=== PATIENT | male | born 1975 | race Caucasian/White ===

== ENCOUNTER 2022-08-23 09:40 | Emergency (ER) | payer OTHER ==
[~2022-08-23] VITALS: Ht 172.7 cm; Wt 77.1 kg
[2022-08-23 10:10] VITALS: BP 123/88
== END 2022-08-23 11:00 | disposition home or self-care (01) ==
LOC: ER 09:40
DX: S01.111D Laceration without foreign body of right eyelid and periocular area, subsequent encounter (principal)

== ENCOUNTER 2024-05-21 07:18 | Emergency (ER) | payer OTHER ==
[~2024-05-21] VITALS: Ht 177.8 cm; Wt 72.6 kg
[2024-05-21 09:07] LABS: BASOPHILS ABSOLUTE AUTO 0.05 K/mm3 (0.00-0.23); BASOPHILS PERCENT AUTO 1 % (0-2); EOSINOPHILS ABSOLUTE AUTO 0.05 K/mm3 (0.00-0.68); EOSINOPHILS PERCENT AUTO 1 % (0-6); Hematocrit 40.1 % (37.0-53.0); Hemoglobin 14.7 g/dL (13.5-17.5); IMMATURE GRAN ABSOLUTE AUTO 0.02 K/mm3 (0.00-0.10); IMMATURE GRAN PERCENT AUTO 0 % (0-1); LYMPHOCYTES ABSOLUTE AUTO 1.02 K/mm3 (0.84-5.20); LYMPHOCYTES PERCENT AUTO 11 % (21-46); MONOCYTES ABSOLUTE AUTO 1.34 K/mm3 (0.16-1.47); MONOCYTES PERCENT AUTO 14 % (4-13); Mean Corpuscular HGB 36.5 pg (26.0-34.0); Mean Corpuscular HGB Conc 36.7 g/dL (31.5-36.5); Mean Corpuscular Volume 100 fL (80-100); Mean Platelet Volume 9.9 fL (9.1-12.4); NEUTROPHILS ABSOLUTE AUTO 6.97 K/mm3 (1.96-9.15); NEUTROPHILS PERCENT AUTO 74 % (41-73); Platelet Count 268 K/mm3 (150-400); RDW Coefficient Variation 13.3 % (11.7-14.2); RDW Standard Deviation 49.3 fL (35.1-46.3); Red Blood Cell Count 4.03 M/mm3 (4.30-5.90); White Blood Cell Count 9.45 K/mm3 (4.00-11.30)
[2024-05-21 09:36] LABS: Albumin, Blood 3.8 g/dL (3.4-5.0); Albumin/Globulin Ratio 0.8 (0.8-1.8); Bilirubin, Total 0.4 mg/dL (0.1-1.0); Bun/Creatinine Ratio 5.6 (12.0-20.0); Creatinine, Blood 0.54 mg/dL (0.60-1.20); Globulin, Blood 4.7 g/dL (2.2-4.0); Potassium, Blood 4.1 mmol/L (3.5-5.5); Total Protein, Blood 8.5 g/dL (6.4-8.2)
[2024-05-21] MEDS ORDERED: Ketorolac Tromethamine 30mg Vial IV ONE (11:35)
[2024-05-21] MEDS ORDERED: NS 1,000 ML IV SCH (11:35)
[2024-05-21 12:27] LABS: Phosphorus, Blood 2.6 mg/dL (2.5-4.9)
[2024-05-21 12:52] VITALS: BP 167/85
[2024-05-21] MEDS ORDERED: Folic Acid 1 MG TAB PO ONE (12:55)
== END 2024-05-21 15:13 | disposition home or self-care (01) ==
LOC: ER 07:18
PROVIDERS: Student in an Organized Health Care Education/Training Program
DX: R20.2 Paresthesia of skin (principal); E86.0 Dehydration; E53.8 Deficiency of other specified B group vitamins; R25.1 Tremor, unspecified; Z88.2 Allergy status to sulfonamides
CPT/HCPCS: 70450; 80053; 82550; 82607; 82746; 83735; 84100; 85025; 85651; 86140; 93005; 93010; 93246; 96361; 96374; 99284-25; A9270; J1885; J7030

== ENCOUNTER 2024-08-29 07:54 | Emergency (ER) | payer OTHER ==
[~2024-08-29] VITALS: Ht 175.3 cm; Wt 77.1 kg
[2024-08-29] MEDS ORDERED: NS 1,000 ML IV SCH ×2 (08:20→13:20)
[2024-08-29] MEDS ORDERED: GABA100 PO (08:20)
[2024-08-29] MEDS ORDERED: Ondansetron HCl 2 MG / ML 2ML Vial IV PRN (08:20)
[2024-08-29] MEDS ORDERED: Morphine Sulfate 4 MG/1 ML Injection IV PRN (08:20)
[2024-08-29 08:27] LABS: BASOPHILS ABSOLUTE AUTO 0.06 K/mm3 (0.00-0.23); BASOPHILS PERCENT AUTO 1 % (0-2); EOSINOPHILS ABSOLUTE AUTO 0.03 K/mm3 (0.00-0.68); EOSINOPHILS PERCENT AUTO 0 % (0-6); Hematocrit 45.1 % (37.0-53.0); Hemoglobin 15.9 g/dL (13.5-17.5); IMMATURE GRAN ABSOLUTE AUTO 0.03 K/mm3 (0.00-0.10); IMMATURE GRAN PERCENT AUTO 0 % (0-1); LYMPHOCYTES ABSOLUTE AUTO 1.45 K/mm3 (0.84-5.20); LYMPHOCYTES PERCENT AUTO 13 % (21-46); MONOCYTES ABSOLUTE AUTO 1.48 K/mm3 (0.16-1.47); MONOCYTES PERCENT AUTO 13 % (4-13); Mean Corpuscular HGB 34.7 pg (26.0-34.0); Mean Corpuscular HGB Conc 35.3 g/dL (31.5-36.5); Mean Corpuscular Volume 99 fL (80-100); Mean Platelet Volume 9.8 fL (9.1-12.4); NEUTROPHILS PERCENT AUTO 72 % (41-73); Platelet Count 317 K/mm3 (150-400); RDW Standard Deviation 43.8 fL (35.1-46.3); Red Blood Cell Count 4.58 M/mm3 (4.30-5.90); White Blood Cell Count 11.05 K/mm3 (4.00-11.30)
[2024-08-29 09:04] LABS: Magnesium, Blood 1.9 mg/dL (1.6-2.4)
[2024-08-29 09:23] LABS: Albumin, Blood 3.5 g/dL (3.4-5.0); Albumin/Globulin Ratio 0.8 (0.8-1.8); Bilirubin, Total 0.2 mg/dL (0.1-1.0); Calcium, Blood 8.3 mg/dL (8.5-10.1); Creatinine, Blood 0.56 mg/dL (0.60-1.20); Globulin, Blood 4.3 g/dL (2.2-4.0); Phosphorus, Blood 3.3 mg/dL (2.5-4.9); Potassium, Blood 3.7 mmol/L (3.5-5.5); Total Protein, Blood 7.8 g/dL (6.4-8.2)
[2024-08-29] MEDS ORDERED: FOLI1 PO (09:30)
[2024-08-29] MEDS ORDERED: Acetaminophen 500 MG Tab PO ONE (12:45)
[2024-08-29] MEDS ORDERED: NS 1,000 ML BAG IR ONE (13:15)
[2024-08-29] MEDS ORDERED: NS 1,000 ML IV ONE (13:30)
[2024-08-29 14:00] VITALS: BP 117/75
== END 2024-08-29 15:02 | disposition home or self-care (01) ==
LOC: ER 07:54
PROVIDERS: Student in an Organized Health Care Education/Training Program
DX: S82.231A Displaced oblique fracture of shaft of right tibia, initial encounter for closed fracture (principal); S82.451A Displaced comminuted fracture of shaft of right fibula, initial encounter for closed fracture; F10.929 Alcohol use, unspecified with intoxication, unspecified; Y90.8 Blood alcohol level of 240 mg/100 ml or more; K74.60 Unspecified cirrhosis of liver; F17.210 Nicotine dependence, cigarettes, uncomplicated; W18.30XA Fall on same level, unspecified, initial encounter
CPT/HCPCS: 27825; 73560-RT; 73590; 73600; 80053; 80320; 82550; 83605; 83735; 84100; 85025; 96361-59; 96374-59; 96375-59; 99284-25; J2270; J2405; J7030

== ENCOUNTER 2024-09-02 07:34 | Emergency (ER) | payer OTHER ==
[~2024-09-02] VITALS: Ht 177.8 cm; Wt 74.8 kg
[~2024-09-02 07:34] MED LIST: FOLI1 PO; GABA100 PO
[2024-09-02] MEDS ORDERED: Ketorolac Tromethamine 15mg Vial IV ONE (08:45)
[2024-09-02] MEDS ORDERED: FentaNYL Citrate 50 MCG/ML 2 ML Injection IV ONE (08:45)
[2024-09-02] MEDS ORDERED: HYDROmorphone HCl/Pf 1MG SYR IV ONE ×2 (09:50→10:25)
[2024-09-02] MEDS ORDERED: NS 1,000 ML IV SCH (09:50)
[2024-09-02 10:36] VITALS: BP 120/84
[2024-09-02] MEDS ORDERED: IBUP800 PO (11:44)
[2024-09-02] MEDS ORDERED: ONDA4ODT MM (11:44)
[2024-09-02] MEDS ORDERED: Percocet 5-3251 EACH PO (11:44)
[2024-09-02] MEDS ORDERED: NARCAN4 M1 (11:46)
== END 2024-09-02 12:11 | disposition home or self-care (01) ==
LOC: ER 07:34
DX: S82.241D Displaced spiral fracture of shaft of right tibia, subsequent encounter for closed fracture with routine healing (principal); S82.451D Displaced comminuted fracture of shaft of right fibula, subsequent encounter for closed fracture with routine healing; Z88.2 Allergy status to sulfonamides; Z79.899 Other long term (current) drug therapy; W19.XXXD Unspecified fall, subsequent encounter
CPT/HCPCS: 29505; 73590; 96374-59; 96375-59; 99284-25; J1171; J1885; J3010; J7030

== ENCOUNTER 2024-09-03 17:08 | Emergency (ER) | payer OTHER ==
[~2024-09-03] VITALS: Ht 177.8 cm; Wt 72.6 kg
[~2024-09-03 17:08] MED LIST changes: +IBUP800 PO; +NARCAN4 M1; +ONDA4ODT MM; +Percocet 5-3251 EACH PO
[2024-09-03 18:15] VITALS: BP 136/90
== END 2024-09-03 18:59 | disposition home or self-care (01) ==
LOC: ER 17:08
DX: R44.1 Visual hallucinations (principal); Z79.899 Other long term (current) drug therapy; Z88.2 Allergy status to sulfonamides
CPT/HCPCS: 99284

== ENCOUNTER 2024-09-04 13:07 | Emergency (ER) | payer OTHER ==
[~2024-09-04] VITALS: Ht 177.8 cm; Wt 74.8 kg
[2024-09-04 15:00] VITALS: BP 134/78
== END 2024-09-04 15:30 | disposition home or self-care (01) ==
LOC: ER 13:07
DX: S82.301D Unspecified fracture of lower end of right tibia, subsequent encounter for closed fracture with routine healing (principal); S82.831D Other fracture of upper and lower end of right fibula, subsequent encounter for closed fracture with routine healing; X58.XXXD Exposure to other specified factors, subsequent encounter; Z46.89 Encounter for fitting and adjustment of other specified devices; Z88.2 Allergy status to sulfonamides
CPT/HCPCS: 29505; 73590; 99283-25

== ENCOUNTER 2024-09-06 09:05 | Day surgery (SDC) | payer OTHER ==
[~2024-09-06] VITALS: Ht 177.8 cm; Wt 74.8 kg
[2024-09-06] VITALS (10 sets, daily range): BP systolic 112–142; BP diastolic 70–89
[~2024-09-06 09:05] MED LIST changes: +CeFAZolin Sodium 2,000 MG in NS 100 ML IV SCH; +Lactated Ringer's 1,000 ML IV SCH
[2024-09-06] MEDS ORDERED: Bupivacaine 0.5% W/EPI 1:200000 SDV 30 ML Vial ONE (10:35)
[2024-09-06] MEDS ORDERED: propofoL 20 ML IV ONE ×2 (10:58→12:46)
[2024-09-06] MEDS ORDERED: Dexamethasone Sod Phos 10 MG/ML 1ML VIAL ONE (10:59)
[2024-09-06] MEDS ORDERED: FentaNYL Citrate 50 MCG/ML 2 ML Injection ONE (10:59)
[2024-09-06] MEDS ORDERED: Ondansetron HCl 2 MG / ML 2ML Vial ONE (10:59)
[2024-09-06] MEDS ORDERED: Rocuronium Bromide 10 MG/ML 5ML Injection IV ONE ×2 (10:59→12:40)
[2024-09-06] MEDS ORDERED: Ketorolac Tromethamine 30mg Vial ONE (10:59)
[2024-09-06] MEDS ORDERED: Tranexamic Acid 100 ML IV ONE (11:16)
[2024-09-06] MEDS ORDERED: FentaNYL Citrate 50 MCG/ML 2 ML Injection IV PRN (11:20)
[2024-09-06] MEDS ORDERED: Albuterol 2.5 MG/3 ML VIAL INH PRN (11:20)
[2024-09-06] MEDS ORDERED: HYDROmorphone HCl/Pf 1MG SYR IV PRN (11:20)
[2024-09-06] MEDS ORDERED: Prochlorperazine Edisylate 10 mg Vial IV PRN (11:20)
[2024-09-06] MEDS ORDERED: HYDROmorphone HCl/Pf 1MG SYR ONE (12:00)
[2024-09-06] MEDS ORDERED: Sugammadex Sodium 200 MG/2ML SDV (100 MG/ML) ONE (12:01)
--- NOTE | 2024-09-06 14:16 | NUR ---
Discharge instructions reviewed with patient. Patient verbalizes understanding. Copy given to patient to take home. Discharge instructions reviewed with patient. Patient verbalizes understanding. Copy given to patient to take home. Discharged via wheelchair to private car for ride home.
== END 2024-09-06 14:17 | disposition home or self-care (01) ==
LOC: ORSCMMR 09:05
PROVIDERS: Orthopaedic Surgery
PROC: 0QSG04Z Reposition Right Tibia with Internal Fixation Device, Open Approach (ICD-10-PCS; principal; 2024-09-06 11:00)
DX: S82.201A Unspecified fracture of shaft of right tibia, initial encounter for closed fracture (principal); W01.0XXA Fall on same level from slipping, tripping and stumbling without subsequent striking against object, initial encounter; F17.210 Nicotine dependence, cigarettes, uncomplicated; G62.9 Polyneuropathy, unspecified; Z79.899 Other long term (current) drug therapy
CPT/HCPCS: C1713; C1769; C1889; J0690; J1100; J1171; J1885; J2405; J2704; J3010; J7120